=== PATIENT | female | born 1965 | race African-American/Black ===

== ENCOUNTER 2018-05-10 15:12 | Inpatient (IN) | payer OTHER ==
[2018-05-10 19:17] VITALS: BMI 49.2
--- NOTE | 2018-05-10 20:04 | HP ---
COWS - Scale Resting Pulse: 0= [place] 80 or Below Sweatin= Chills/Flushing Restless Observation: 1= Difficult to Sit Still Pupil Size: 0= Normal to Room Light Bone or Joint Aches: 2= Severe Diffuse Aches Runny Nose/ Eye Tearin= Runny Nose/Eyes GI Upset > 30mins: 1= Stomach Cramp Tremor Observation: 1= Tremor [place], Not Seen Yawning Observation: 2= >3x During Session Anxiety or Irritability: 2=Irritable/Anxious Goose Flesh Skin: 0=Smooth Skin COWS Score: 12 CIWA Score - CIWA Score Nausea/Vomitin Muscle Tremors: 2 Anxiety: 3 Agitation: 3 Paroxysmal Sweats: 2 Orientation: 0-Oriented Tacttile Disturbances: 2-Mild Itch/Numbness/Burn (b/t feet) Auditory Disturbances: 0-None Visual Disturbances: 0-None Headache: 0-None Present CIWA-Ar Total Score: 14 Admission ROS S - HPI Chief Complaint: opioid and benzo withdrawal symptoms Allergies/Adverse Reactions: Allergies Allergy/AdvReac Type Severity Reaction Status Date / Time Penicillins Allergy Rash Verified 05/10/18 20:04 History of Present Illness: 53 yo female with hx of nicotine, heroin (nasal), and xanax dependence is here seeking detox. Last detox two years ago in [facility]. PMHX : HTN, DM II, GERD, Asthma, Anemia, HDL, Depression, insomnia. Denies suicidal / homicidal ideation or suicide attempts. Denies hx of overdose, seizures, blackouts. Denies legal troubles. Longest periods of sobriety 16 years , relapsed six years ago. Exam Limitations: No Limitations - Ebola screening Have you traveled outside of the country in the last 21 days: No Have you had contact with anyone from an Ebola affected area: No Have you been sick,other than usual withdrawal symptoms: No - Review of Systems Constitutional: Chills, Changes in sleep, Unintentional Wgt. Loss (4 lb in past six weeks) EENT: reports: Nose Congestion Respiratory: reports: No Symptoms reported Cardiac: reports: No Symptoms Reported GI: reports: Poor Fluid Intake, Indigestion, Abdominal cramping : reports: No Symptoms Reported Musculoskeletal: reports: Back Pain, Joint Pain Integumentary: reports: No Symptoms Reported Neuro: reports: Numbness (b/l feet) Endocrine: reports: Increased Thirst Hematology: reports: See HPI, Anemia Psychiatric: reports: Orientated x3, Anxious Other Systems: Reviewed and Negative Patient History - Patient Medical History Hx Anemia: Yes Hx Asthma: Yes Hx Chronic Obstructive Pulmonary Disease (COPD): No Hx Cancer: No Hx Cardiac Disorders: No Hx Congestive Heart Failure: No Hx Hypertension: Yes Hx Hypercholesterolemia: Yes Hx Pacemaker: No HX Cerebrovascular Accident: Yes Hx Seizures: No Hx Dementia: No Hx Diabetes: Yes (on metformin ) Hx Gastrointestinal Disorders: Yes (GERD ) Hx Liver Disease: No Hx Genitourinary Disorders: No Hx Sexually Transmitted Disorders: No Hx Renal Disease (ESRD): No Hx Thyroid Disease: No Hx Human Immunodeficiency Virus (HIV): No (last tested november 2017) Hx Hepatitis C: No Hx Depression: Yes Hx Suicide Attempt: No Hx Bipolar Disorder: No - Patient Surgical History Past Surgical History: Yes Hx Neurologic Surgery: No Hx Cataract Extraction: No Hx Cardiac Surgery: No Hx Lung Surgery: No Hx Breast Surgery: No Hx Breast Biopsy: No Hx Abdominal Surgery: No Hx Appendectomy: No Hx Cholecystectomy: No Hx Genitourinary Surgery: No Hx Section: No Hx Orthopedic Surgery: No Other Surgical History: Tubal Ligation 16 years ago - PPD History Previous Implant?: No Documented Results: Negative w/o proof PPD to be Administered?: Yes - Reproductive History Patient is a Female of Child Bearing Age (11 -55 yrs old): Yes (post menopausal ) Patient : No - Smoking Cessation Smoking history: Current every day smoker Have you smoked in the past 12 months: Yes Aproximately how many cigarettes per day: 20 Hx Chewing Tobacco Use: No Initiated information on smoking cessation: Yes 'Breaking Loose' booklet given: 05/10/18 - Substance & Tx. History Hx Alcohol Use: No Hx Substance Use: Yes Substance Use Type: Heroin, Tranquilizers Hx Substance Use Treatment: Yes (Last detox two years ago in [facility]. ) - Substances Abused Heroin Route: Inhalation Frequency: Daily Amount used: 7 -10 bags Age of first use: 27 Date of Last Use: 05/10/18 Alprazolam (Xanax) Route: Inhalation Frequency: 1-2 times per week Amount used: 2 mg Age of first use: 47 Date of Last Use: 05/09/18 Family Disease History - Family Disease History Family Disease History: Diabetes: Mother (alive ) Admission Physical Exam [facility] - Vital Signs Vital Signs: Vital Signs - 24 hr 05/10/18 19:12 Temperature 97.7 F Pulse Rate 66 Respiratory 22 H Rate Blood Pressure 132/72 - Physical General Appearance: Yes: Mild Distress, Obese, Anxious HEENTM: Yes: EOMI, Hearing grossly Normal, Normal ENT Inspection, Normocephalic , Normal Voice, GUNNAR, Pharynx Normal, Tm's normal Respiratory: Yes: Chest Non-Tender, Lungs Clear, Normal Breath Sounds, No Respiratory Distress, No Accessory Muscle Use Neck: Yes: Within Normal Limits Breast: Yes: Breast Exam Deferred Cardiology: Yes: Regular Rhythm, Regular Rate Abdominal: Yes: Normal Bowel Sounds, Non Tender, Soft, Protuberent Genitourinary: Yes: Within Normal Limits Back: Yes: Normal Inspection Musculoskeletal: Yes: full range of Motion, Gait Steady, Pelvis Stable, Back pain Extremities: Yes: Normal Capillary Refill, Normal Range of Motion, Non-Tender Neurological: Yes: quality improvement specialist II-XII NML intact, Fully Oriented, Alert, Motor Strength 5/5, Normal Response, Depressed Affect Integumentary: Yes: Normal Color, Clammy Lymphatic: Yes: Within Normal Limits - Diagnostic (1) Hypertension Current Visit: Yes Status: Chronic Qualifiers: Hypertension type: essential hypertension Qualified Code(s): I10 - Essential (primary) hypertension (2) Diabetes mellitus type 2 in obese Current Visit: Yes Status: Chronic (3) Hyperlipidemia Current Visit: Yes Status: Chronic Qualifiers: Hyperlipidemia type: unspecified Qualified Code(s): E78.5 - Hyperlipidemia , unspecified (4) Anemia Current Visit: Yes Status: Chronic Qualifiers: Anemia type: unspecified type Qualified Code(s): D64.9 - Anemia, unspecified (5) Opioid dependence with withdrawal Current Visit: Yes Status: Acute (6) Sedative, hypnotic or anxiolytic dependence with withdrawal, uncomplicated Current Visit: Yes Status: Acute (7) Asthma Current Visit: Yes Status: Chronic Qualifiers: Asthma severity: mild Asthma persistence: intermittent Asthma complication type: uncomplicated Qualified Code(s): J45.20 - Mild intermittent asthma, uncomplicated (8) Nicotine dependence Current Visit: Yes Status: Acute Qualifiers: Nicotine product type: cigarettes Cleared for Admission [facility] - Detox or Rehab [facility] Level of Care: Medically Managed Detox Regimen/Protocol: Methadone/Valium BHS Breath Alcohol Content Breath Alcohol Content: 0 Urine Pregancy Test - Result Urine Test Results: Negative- NO Line Present Urine Drug Screen - Results Drug Screen Negative: No Urine Drug Screen Results: OPI-Opiates, BZO-Benzodiazepines, OXY-Oxycodone, FEN- Fentanyl
[2018-05-10] MEDS ORDERED: MAG HYDROX/AL HYDROX/SIMETH 30 ML UNIT-DOSE CUP PO PRN (20:29)
[2018-05-10] MEDS ORDERED: diazePAM 5 MG TABLET PO ONE (20:29)
[2018-05-10] MEDS ORDERED: MAGNESIUM CITRATE 300 ML BOTTLE PO PRN (20:29)
[2018-05-10] MEDS ORDERED: METHADONE HCL 10 MG TABLET (FOR DETOX USE ONLY) PO ONE ×2 (20:29→23:00)
[2018-05-10] MEDS ORDERED: hydrOXYzine PAMOATE 50 MG CAPSULE (FP) PO PRN (20:29)
[2018-05-10] MEDS ORDERED: ACETAMINOPHEN 325 MG TABLET (FP) PO PRN (20:29)
[2018-05-10] MEDS ORDERED: MAGNESIUM HYDROX 2400MG/30ML ORAL SUSPENSION 30 ML CUP PO PRN (20:29)
[2018-05-10] MEDS ORDERED: P-EPHED 60MG/TRIPROLIDI 2.5MG TABLET PO PRN (20:29)
[2018-05-10] MEDS ORDERED: guaiFENesin/D-METHORPHAN HB 10 ML UNIT-DOSE CUPS PO PRN (20:29)
[2018-05-10] MEDS ORDERED: NICOTINE POLACRILEX 2 MG GUM BUC PRN (20:29)
[2018-05-10] MEDS ORDERED: MENTHOL/PHENOL 1 EACH UD MM PRN (20:29)
[2018-05-10] MEDS ORDERED: LOPERAMIDE HCL 2 MG CAPSULE PO PRN (20:29)
[2018-05-10] MEDS: ATORVASTATIN CA 20 MG TABLET (FP) PO SCH (22:32)
[2018-05-10] MEDS: cloNIDine HCL 0.1 MG TABLET PO SCH (22:33)
[2018-05-10] MEDS: MELATONIN 5 MG TABLETS PO PRN (22:35)
[2018-05-10] MEDS: diazePAM 5 MG TABLET PO SCH (22:52)
[2018-05-10] MEDS: THIAMINE HCL 100 MG TABLET (FP) PO SCH (22:53)
[2018-05-11] MEDS: diazePAM 5 MG TABLET PO SCH ×3 (06:02→22:42)
[2018-05-11] MEDS: metFORMIN HCL 500 MG TABLET (FP) PO SCH ×2 (06:02→17:24)
--- NOTE | 2018-05-11 08:47 | CONSULT ---
[facility] Psychiatric Consult - Data Date of interview: 05/11/18 Admission source: [facility] Identifying data: This is a 53 years old female, single mother of two, living alone, unemployed, onn SSD, with no psychiatric hospitalization history, with history of nicotine, heroin (nasal), and xanax dependence is here seeking detox. reporting withdrawal symtoms. Last detox two years ago in [facility]. Substance Abuse History: - Smoking Cessation. Smoking history: Current every day smoker. Have you smoked in the past 12 months: Yes. Aproximately how many cigarettes per day: 20. Hx Chewing Tobacco Use: No. Initiated information on smoking cessation: Yes. 'Breaking Loose' booklet given: 05/10/18. - Substance & Tx. History. Hx Alcohol Use: No. Hx Substance Use: Yes. Substance Use Type : Heroin, Tranquilizers. Hx Substance Use Treatment: Yes (Last detox two years ago in [facility]. ). - Substances Abused. Heroin. Route: Inhalation. Frequency: Daily. Amount used: 7 -10 bags. Age of first use: 27. Date of Last Use: 05/10/18. Alprazolam (Xanax). Route: Inhalation. Frequency: 1-2 times per week. Amount used: 2 mg. Age of first use: 47. Date of Last Use: 05/09/18 Medical History: HTN, DM-2, Asthma, Low HDL history, hyperlipidemia, Anemia history Psychiatric History: Patient reports history of anxiety and depression, reports taking prior to admissin: Remeron 30mg po qhs. Risperdal 1mg po qhs. Prozoac 40mg poqd. Denies suicidal and homisidal history. Physical/Sexual Abuse/Trauma History: Denies Additional Comment: Remeron 30mg po qhs. Risperdal 1mg po qhs. Prozoac 40mg poqd Mental Status Exam - Mental Status Exam Alert and Oriented to: Person Cognitive Function: Fair Patient Appearance: Unkempt Mood: Apprehensive Affect: Mood Congruent Patient Behavior: Talkative, Cooperative Speech Pattern: Appropriate Voice Loudness: Mildly Soft/Quiet Thought Process: Goal Oriented Thought Disorder: Being Controlled Hallucinations: Denies Suicidal Ideation: Denies Homicidal Ideation: Denies Insight/Judgement: Fair Sleep: Difficulty falling asleep Appetite: Weight gain Muscle strength/Tone: Mild Hypotonicity Gait/Station: Shuffling Additional Comments: Remeron 30mg po qhs. Risperdal 1mg po qhs. Prozoac 40mg poqd Psychiatric Findings - Problem List ([place] 1, 2,3) (1) Nicotine dependence Current Visit: Yes Status: Acute Qualifiers: Nicotine product type: cigarettes (2) Opioid dependence with withdrawal Current Visit: Yes Status: Acute (3) Sedative, hypnotic or anxiolytic dependence with withdrawal, uncomplicated Current Visit: Yes Status: Acute (4) Anemia Current Visit: Yes Status: Chronic Qualifiers: Anemia type: unspecified type Qualified Code(s): D64.9 - Anemia, unspecified (5) Asthma Current Visit: Yes Status: Chronic Qualifiers: Asthma severity: mild Asthma persistence: intermittent Asthma complication type: uncomplicated Qualified Code(s): J45.20 - Mild intermittent asthma, uncomplicated (6) Diabetes mellitus type 2 in obese Current Visit: Yes Status: Chronic (7) Hyperlipidemia Current Visit: Yes Status: Chronic Qualifiers: Hyperlipidemia type: unspecified Qualified Code(s): E78.5 - Hyperlipidemia , unspecified (8) Hypertension Current Visit: Yes Status: Chronic Qualifiers: Hypertension type: essential hypertension Qualified Code(s): I10 - Essential (primary) hypertension - Initial Treatment Plan Initial Treatment Plan: Remeron 30mg po qhs. Risperdal 1mg po qhs. Prozoac 40mg poqd
[2018-05-11] MEDS ORDERED: METHADONE HCL 10 MG TABLET (FOR DETOX USE ONLY) PO SCH (10:00)
[2018-05-11 10:07] LABS: HEMATOCRIT 37.7 % (32.4-45.2); HEMOGLOBIN 12.4 GM/dL (10.7-15.3); MCH 30.4 pg (25.7-33.7); MEAN CELL VOLUME 92.1 fl (80-96); MEAN PLT VOLUME 9.7 fl (7.5-11.1); PLATELET COUNT 185 K/MM3 (134-434); RBC 4.09 M/mm3 (3.60-5.2); RDW 13.5 % (11.6-15.6); WHITE BLOOD COUNT 5.3 K/mm3 (4.0-10.0)
[2018-05-11 10:47] LABS: ALK PHOS 105 U/L (45-117); ANION GAP 7 MMOL/L (8-16); BILIRUBIN,TOTAL 0.9 mg/dL (0.2-1); BLOOD UREA NITROGEN 6 mg/dL (7-18); CALCIUM 8.8 mg/dL (8.5-10.1); CHLORIDE 104 mmol/L (98-107); CO2 29 mmol/L (21-32); CREATININE 0.6 mg/dL (0.55-1.3); GLUCOSE,RANDOM 115 mg/dL (74-106); POTASSIUM 3.8 mmol/L (3.5-5.1); SGOT/AST 17 U/L (15-37); SGPT/ALT 18 U/L (13-61); SODIUM 139 mmol/L (136-145)
[2018-05-11] MEDS: amLODIPine BESYLATE 10 MG TABLET (FP) PO SCH (10:51)
[2018-05-11] MEDS: PRENATAL VITAMINS W/ FOLIC ACID TABLET (FP) PO SCH (10:52)
[2018-05-11] MEDS: cloNIDine HCL 0.1 MG TABLET PO SCH ×2 (10:52→22:42)
[2018-05-11] MEDS: FLUoxetine HCL 20 MG CAPSULE (FP) PO SCH (10:52)
[2018-05-11] MEDS: PANTOPRAZOLE 40 MG TABLET (FP) PO SCH (10:52)
[2018-05-11] MEDS: NICOTINE 21 MG/24 HOURS TOPICAL PATCH TD SCH (10:53)
[2018-05-11] MEDS: diazePAM 5 MG TABLET PO PRN ×2 (10:55→17:25)
[2018-05-11] MEDS ORDERED: ALBUTEROL SO4 8 GM HFA INHALER IH PRN (11:07)
--- NOTE | 2018-05-11 11:21 | PN ---
[facility] CIWA - CIWA Score Nausea/Vomitin-No Nausea/No Vomiting Muscle Tremors: 4-Moderate,w/Arms Extend Anxiety: 3 Agitation: 3 Paroxysmal Sweats: 3 Orientation: 0-Oriented Tacttile Disturbances: 0-None Auditory Disturbances: 0-None Visual Disturbances: 0-None Headache: 0-None Present CIWA-Ar Total Score: 13 BHS COWS - Scale Resting Pulse: 1= [place] 81-100 Sweatin= Chills/Flushing Restless Observation: 1= Difficult to Sit Still Pupil Size: 0= Normal to Room Light Bone or Joint Aches: 2= Severe Diffuse Aches Runny Nose/ Eye Tearin= Nasal Congestion GI Upset > 30mins: 0= None Tremor Observation of Outstretched Hands: 2= Slight Tremor Visible Yawning Observation: 2= >3x During Session Anxiety or Irritability: 2=Irritable/Anxious Goose Flesh Skin: 3=Piloerection COWS Score: 15 BHS Progress Note (SOAP) Subjective: body aches sweats interrupted sleep agitation I need my asthma pump shakes Objective: 05/11/18 11:21 Vital Signs Temperature 98.1 F 05/11/18 10:30 Pulse Rate 81 05/11/18 10:30 Respiratory Rate 19 05/11/18 10:30 Blood Pressure 121/68 05/11/18 10:30 O2 Sat by Pulse Oximetry (%) Laboratory Tests 05/10/18 05/11/18 05/11/18 20:36 06:01 07:30 WBC 5.3 RBC 4.09 Hgb 12.4 Hct 37.7 MCV 92.1 MCH 30.4 MCHC 33.0 RDW 13.5 Plt Count 185 MPV 9.7 Sodium Potassium Chloride Carbon Dioxide Anion Gap BUN Creatinine Creat Clearance w eGFR POC Glucometer 118 144 Random Glucose Calcium Total Bilirubin AST ALT Alkaline Phosphatase Total Protein Albumin RPR Titer 05/11/18 05/11/18 07:30 07:30 WBC RBC Hgb Hct MCV MCH MCHC RDW Plt Count MPV Sodium 139 Potassium 3.8 Chloride 104 Carbon Dioxide 29 Anion Gap 7 L BUN 6 L Creatinine 0.6 Creat Clearance w eGFR > 60 POC Glucometer Random Glucose 115 H Calcium 8.8 Total Bilirubin 0.9 AST 17 ALT 18 Alkaline Phosphatase 105 Total Protein 6.0 L Albumin 3.0 L RPR Titer Nonreactive aaox3 lying in bed no acute distress Assessment: 05/11/18 11:21 withdrawals sx Plan: continue detox increase fluids ventolin pump ordered
--- NOTE | 2018-05-11 14:48 | EKG ---
Test Reason : Blood Pressure : / mmHG Vent. Rate : 068 BPM Atrial Rate : 068 BPM P-R Int : 142 ms QRS Dur : 078 ms QT Int : 420 ms P-R-T Axes : 071 010 028 degrees QTc Int : 446 ms NORMAL SINUS RHYTHM NORMAL ECG NO PREVIOUS ECGS AVAILABLE Confirmed by DINORAH ROBBINS, RUFINO ([id number]) on 05/11/2018 2:48:24 PM Referred By: Confirmed By:RUFINO COPELAND MD
[2018-05-11] MEDS: MIRTAZAPINE 30 MG TABLET (FP) PO SCH (22:42)
[2018-05-11] MEDS: risperiDONE 1 MG TABLET (FP) PO SCH (22:42)
[2018-05-11] MEDS: ATORVASTATIN CA 20 MG TABLET (FP) PO SCH (22:42)
[2018-05-11] MEDS: THIAMINE HCL 100 MG TABLET (FP) PO SCH (22:43)
[2018-05-12] MEDS: diazePAM 5 MG TABLET PO PRN ×3 (03:22→17:13)
[2018-05-12] MEDS: IBUPROFEN 400 MG TABLET (FP) PO PRN ×3 (03:23→22:23)
[2018-05-12] MEDS: metFORMIN HCL 500 MG TABLET (FP) PO SCH ×2 (07:19→17:12)
[2018-05-12] MEDS: PRENATAL VITAMINS W/ FOLIC ACID TABLET (FP) PO SCH (10:24)
[2018-05-12] MEDS: cloNIDine HCL 0.1 MG TABLET PO SCH ×2 (10:24→22:22)
[2018-05-12] MEDS: FLUoxetine HCL 20 MG CAPSULE (FP) PO SCH (10:24)
[2018-05-12] MEDS: amLODIPine BESYLATE 10 MG TABLET (FP) PO SCH (10:24)
[2018-05-12] MEDS: METHADONE HCL 5 MG TABLET (FOR DETOX USE ONLY) PO SCH (10:25)
[2018-05-12] MEDS: NICOTINE 21 MG/24 HOURS TOPICAL PATCH TD SCH (10:25)
[2018-05-12] MEDS: diazePAM 5 MG TABLET PO SCH ×2 (10:25→22:21)
[2018-05-12] MEDS: PANTOPRAZOLE 40 MG TABLET (FP) PO SCH (10:25)
--- NOTE | 2018-05-12 11:44 | PN ---
[facility] CIWA - CIWA Score Nausea/Vomitin-No Nausea/No Vomiting Muscle Tremors: 3 Anxiety: 3 Agitation: 3 Paroxysmal Sweats: 3 Orientation: 0-Oriented Tacttile Disturbances: 0-None Auditory Disturbances: 0-None Visual Disturbances: 0-None Headache: 0-None Present CIWA-Ar Total Score: 12 S COWS - Scale Resting Pulse: 0= [place] 80 or Below Sweatin= Chills/Flushing Restless Observation: 0= Sits Still Pupil Size: 0= Normal to Room Light Bone or Joint Aches: 1= Mild Discomfort Runny Nose/ Eye Tearin= Runny Nose/Eyes GI Upset > 30mins: 1= Stomach Cramp Tremor Observation of Outstretched Hands: 2= Slight Tremor Visible Yawning Observation: 2= >3x During Session Anxiety or Irritability: 2=Irritable/Anxious Goose Flesh Skin: 0=Smooth Skin COWS Score: 11 S Progress Note (SOAP) Subjective: sweats irritable agitation anxiety body aches Objective: 05/12/18 11:45 Vital Signs Temperature 98.2 F 05/12/18 11:03 Pulse Rate 72 05/12/18 11:03 Respiratory Rate 17 05/12/18 11:03 Blood Pressure 116/59 L 05/12/18 11:03 O2 Sat by Pulse Oximetry (%) Laboratory Tests 05/10/18 05/11/18 05/11/18 20:36 06:01 07:30 WBC 5.3 RBC 4.09 Hgb 12.4 Hct 37.7 MCV 92.1 MCH 30.4 MCHC 33.0 RDW 13.5 Plt Count 185 MPV 9.7 Sodium Potassium Chloride Carbon Dioxide Anion Gap BUN Creatinine Creat Clearance w eGFR POC Glucometer 118 144 Random Glucose Calcium Total Bilirubin AST ALT Alkaline Phosphatase Total Protein Albumin RPR Titer 05/11/18 05/11/18 05/11/18 07:30 07:30 16:37 WBC RBC Hgb Hct MCV MCH MCHC RDW Plt Count MPV Sodium 139 Potassium 3.8 Chloride 104 Carbon Dioxide 29 Anion Gap 7 L BUN 6 L Creatinine 0.6 Creat Clearance w eGFR > 60 POC Glucometer 189 Random Glucose 115 H Calcium 8.8 Total Bilirubin 0.9 AST 17 ALT 18 Alkaline Phosphatase 105 Total Protein 6.0 L Albumin 3.0 L RPR Titer Nonreactive 05/12/18 07:03 WBC RBC Hgb Hct MCV MCH MCHC RDW Plt Count MPV Sodium Potassium Chloride Carbon Dioxide Anion Gap BUN Creatinine Creat Clearance w eGFR POC Glucometer 127 Random Glucose Calcium Total Bilirubin AST ALT Alkaline Phosphatase Total Protein Albumin RPR Titer aaox3 lying in bed no acute distress Assessment: 05/12/18 11:47 withdrawal sx Plan: continue detox increase fluids
[2018-05-12 18:52] LABS: URINE APPEARANCE SLCLOUDY; URINE BILIRUBIN NEGATIVE (<2.0 mg/dL); URINE COLOR AMBER; URINE GLUCOSE (UA) NEGATIVE (NEGATIVE); URINE KETONE NEGATIVE (NEGATIVE); URINE LEUK ESTERASE TRACE (NEGATIVE); URINE NITRITE NEGATIVE (NEGATIVE); URINE PROTEIN NEGATIVE (NEGATIVE)
[2018-05-12 19:05] LABS: EPI CELLS FEW /HPF (FEW); URINE BACTERIA RARE /hpf (NONE SEEN); URINE MUCUS FEW
[2018-05-12] MEDS: THIAMINE HCL 100 MG TABLET (FP) PO SCH (22:21)
[2018-05-12] MEDS: MIRTAZAPINE 30 MG TABLET (FP) PO SCH (22:22)
[2018-05-12] MEDS: risperiDONE 1 MG TABLET (FP) PO SCH (22:22)
[2018-05-12] MEDS: ATORVASTATIN CA 20 MG TABLET (FP) PO SCH (22:22)
[2018-05-12] MEDS: MELATONIN 5 MG TABLETS PO PRN (22:24)
[2018-05-13] MEDS: metFORMIN HCL 500 MG TABLET (FP) PO SCH ×2 (07:58→16:39)
[2018-05-13] MEDS: PRENATAL VITAMINS W/ FOLIC ACID TABLET (FP) PO SCH (10:53)
[2018-05-13] MEDS: amLODIPine BESYLATE 10 MG TABLET (FP) PO SCH (10:53)
[2018-05-13] MEDS: FLUoxetine HCL 20 MG CAPSULE (FP) PO SCH (10:53)
[2018-05-13] MEDS: diazePAM 5 MG TABLET PO SCH ×2 (10:53→22:25)
[2018-05-13] MEDS: PANTOPRAZOLE 40 MG TABLET (FP) PO SCH (10:53)
[2018-05-13] MEDS: cloNIDine HCL 0.1 MG TABLET PO SCH ×2 (10:53→22:26)
[2018-05-13] MEDS: METHADONE HCL 5 MG TABLET (FOR DETOX USE ONLY) PO SCH (10:54)
[2018-05-13] MEDS: IBUPROFEN 400 MG TABLET (FP) PO PRN ×2 (10:57→17:41)
[2018-05-13] MEDS: NICOTINE 21 MG/24 HOURS TOPICAL PATCH TD SCH (11:00)
[2018-05-13] MEDS: diazePAM 5 MG TABLET PO PRN ×2 (12:52→17:41)
--- NOTE | 2018-05-13 13:59 | PN ---
[facility]HS Progress Note (SOAP) Subjective: pt feeling better little sweats chronic body aches i want to leave tomorrow if possible Objective: 05/13/18 13:58 Vital Signs Temperature 97.7 F 05/13/18 10:00 Pulse Rate 73 05/13/18 10:00 Respiratory Rate 20 05/13/18 10:00 Blood Pressure 153/75 05/13/18 10:00 O2 Sat by Pulse Oximetry (%) aaox3 ambulating no acute distress Assessment: 05/13/18 13:59 mild withdrawal sx Plan: continue detox increase fluids pt may leave tomorrow after medication. If pt continue to insist.
[2018-05-13] MEDS: MIRTAZAPINE 30 MG TABLET (FP) PO SCH (22:25)
[2018-05-13] MEDS: risperiDONE 1 MG TABLET (FP) PO SCH (22:25)
[2018-05-13] MEDS: MELATONIN 5 MG TABLETS PO PRN (22:26)
[2018-05-13] MEDS: ATORVASTATIN CA 20 MG TABLET (FP) PO SCH (22:26)
[2018-05-13] MEDS: THIAMINE HCL 100 MG TABLET (FP) PO SCH (22:26)
[2018-05-14] MEDS: metFORMIN HCL 500 MG TABLET (FP) PO SCH (06:09)
[2018-05-14] MEDS: PANTOPRAZOLE 40 MG TABLET (FP) PO SCH (09:51)
[2018-05-14] MEDS: cloNIDine HCL 0.1 MG TABLET PO SCH (09:51)
[2018-05-14] MEDS: FLUoxetine HCL 20 MG CAPSULE (FP) PO SCH (09:51)
[2018-05-14] MEDS: amLODIPine BESYLATE 10 MG TABLET (FP) PO SCH (09:51)
[2018-05-14] MEDS: PRENATAL VITAMINS W/ FOLIC ACID TABLET (FP) PO SCH (09:52)
--- NOTE | 2018-05-14 09:52 | DS ---
[facility] Detox Discharge Summary Admission Date: 05/10/18 Discharge Date: 05/14/18 - History Present History: Opioid Dependence, Sedative Dependence Additional Comments: Patient medically stable. Patient to follow up with Primary care provider in one week. Reports no refills needed on medications, reports has medications at home. Patient to follow up with out patient referral. If worsening symptoms are present to seek medical attention. - Physical Exam Results Vital Signs: Vital Signs Temperature 97.7 F 05/14/18 08:08 Pulse Rate 66 05/14/18 08:08 Respiratory Rate 18 05/14/18 08:08 Blood Pressure 115/64 05/14/18 08:08 O2 Sat by Pulse Oximetry (%) - Treatment Hospital Course: Detox Protocol Followed, Detoxed Safely, Responded well, Discharged Condition Good, Rehab Referral Accepted Patient has Accepted a Re[facility] Referral [facility] - Medication Discharge Medications: Ambulatory Orders Amlodipine Besylate 10 mg PO DAILY 05/10/18 Atorvastatin Ca [Lipitor] 20 mg PO HS 05/10/18 Clonidine HCl 0.1 mg PO BID 05/10/18 Metformin HCl [Glucophage] 1,000 mg PO BID 05/10/18 Pantoprazole Sodium [Protonix -] 40 mg PO DAILY 05/10/18 Fluoxetine HCl [Prozac] 40 mg PO DAILY #30 capsule 05/11/18 Mirtazapine [Remeron -] 30 mg PO HS #30 tablet 05/11/18 Risperidone 1 mg PO HS #30 tablet 05/11/18 - Diagnosis (1) Hypertension Status: Chronic Qualifiers: Hypertension type: essential hypertension Qualified Code(s): I10 - Essential (primary) hypertension (2) Diabetes mellitus type 2 in obese Status: Chronic (3) Hyperlipidemia Status: Chronic Qualifiers: Hyperlipidemia type: unspecified Qualified Code(s): E78.5 - Hyperlipidemia , unspecified (4) Anemia Status: Chronic Qualifiers: Anemia type: unspecified type Qualified Code(s): D64.9 - Anemia, unspecified (5) Opioid dependence with withdrawal Status: Chronic (6) Sedative, hypnotic or anxiolytic dependence with withdrawal, uncomplicated Status: Chronic (7) Asthma Status: Chronic Qualifiers: Asthma severity: mild Asthma persistence: intermittent Asthma complication type: uncomplicated Qualified Code(s): J45.20 - Mild intermittent asthma, uncomplicated (8) Nicotine dependence Status: Chronic Qualifiers: Nicotine product type: cigarettes Substance use status: uncomplicated Qualified Code(s): F17.210 - Nicotine dependence, cigarettes, uncomplicated - AMA Did Patient Leave Against Medical Advice: No
[2018-05-14] MEDS ORDERED: diazePAM 5 MG TABLET PO SCH (10:00)
[2018-05-14] MEDS ORDERED: METHADONE HCL 10 MG TABLET (FOR DETOX USE ONLY) PO SCH (10:00)
[2018-05-14 11:02] VITALS: BP 133/96; PULSE 78; TEMP 98.1
[2018-05-14] MEDS: NICOTINE 21 MG/24 HOURS TOPICAL PATCH TD SCH (12:07)
[2018-05-15] MEDS ORDERED: METHADONE HCL 5 MG TABLET (FOR DETOX USE ONLY) PO SCH (06:00)
== END 2018-05-14 09:55 | disposition home or self-care (01) | DRG 897 ==
LOC: YASAS 15:12 → Y6N 20:11
PROC: HZ2ZZZZ Detoxification Services for Substance Abuse Treatment (ICD-10-PCS; principal; 2018-05-10)
DX: F11.23 Opioid dependence with withdrawal (principal); F13.230 Sedative, hypnotic or anxiolytic dependence with withdrawal, uncomplicated; F17.210 Nicotine dependence, cigarettes, uncomplicated; E11.9 Type 2 diabetes mellitus without complications; Z79.4 Long term (current) use of insulin; E78.5 Hyperlipidemia, unspecified; I10 Essential (primary) hypertension; K21.9 Gastro-esophageal reflux disease without esophagitis; J45.20 Mild intermittent asthma, uncomplicated; D64.9 Anemia, unspecified; Z88.0 Allergy status to penicillin
CPT/HCPCS: 36415; 80053; 81003; 81015; 82962; 85027; 86593; 93005; 93010; J0735; J2794

== ENCOUNTER 2018-07-08 13:30 | Inpatient (IN) | payer OTHER ==
[2018-07-08 16:18] VITALS: BMI 48.5
--- NOTE | 2018-07-08 17:28 | HP ---
COWS - Scale Resting Pulse: 0= NE 80 or Below Sweatin= Chills/Flushing Restless Observation: 0= Sits Still Pupil Size: 0= Normal to Room Light Bone or Joint Aches: 2= Severe Diffuse Aches Runny Nose/ Eye Tearin= Constantly Teary/Runny GI Upset > 30mins: 1= Stomach Cramp Tremor Observation: 0= None Yawning Observation: 0= None Anxiety or Irritability: 2=Irritable/Anxious Goose Flesh Skin: 0=Smooth Skin COWS Score: 10 CIWA Score - Admission Criteria [facility] Guidelines: Admission for Medically Managed Detox: Requires at least one of the followin. CIWA greater than 12 2. Seizures within the past 24 hours 3. Delirium tremens within the past 24 hours 4. Hallucinations within the past 24 hours 5. Acute intervention needed for co occurring medical disorder 6. Acute intervention needed for co occurring psychiatric disorder 7. Severe withdrawal that cannot be handled at a lower level of care (continued vomiting, continued diarrhea, abnormal vital signs) requiring intravenous medication and/or fluids 8. Admission ROS [facility] - HPI Allergies/Adverse Reactions: Allergies Allergy/AdvReac Type Severity Reaction Status Date / Time Penicillins Allergy Rash Verified 07/08/18 17:05 History of Present Illness: patient here requesting detox from heroin use , reports 9-10 bags heroin daily via inhalation , intermittently since age 27 , longest sobriety 16 years , relapsed at age 46 after rx Oxycontin for back pain , her brother took her medications and had withdrawal symptoms started using heroin , detox most recently 2 months ago , denies OD . xanax use - " as often as I can get it " , approximately1 mg /day , latest use 2 days ago , denies w/d seizures . utox + mop, bzo , fent denies fentanyl use upt neg erika 0.000 denies etoh use tobacco : 1 ppd , requesting nrt w/ patch pmhx : htn , dm , hld, depression, anxiety PSHx : btl 2000 Shx : lives alone Exam Limitations: No Limitations - Ebola screening Have you traveled outside of the country in the last 21 days: No Have you had contact with anyone from an Ebola affected area: No Have you been sick,other than usual withdrawal symptoms: No Do you have a fever: No - Review of Systems Constitutional: See HPI EENT: reports: Tearing Respiratory: reports: No Symptoms reported Cardiac: reports: No Symptoms Reported GI: reports: See HPI : reports: No Symptoms Reported Musculoskeletal: reports: Back Pain, Muscle Pain Integumentary: reports: No Symptoms Reported Neuro: reports: No Symptoms reported Endocrine: reports: See HPI Psychiatric: reports: Orientated x3, Anxious Patient History - Patient Medical History Hx Anemia: Yes Hx Asthma: No Hx Chronic Obstructive Pulmonary Disease (COPD): No Hx Cancer: No Hx Cardiac Disorders: No Hx Congestive Heart Failure: No Hx Hypertension: Yes Hx Hypercholesterolemia: Yes Hx Pacemaker: No HX Cerebrovascular Accident: Yes Hx Seizures: No Hx Dementia: No Hx Diabetes: No Hx Gastrointestinal Disorders: Yes (GERD ) Hx Liver Disease: No Hx Genitourinary Disorders: No Hx Sexually Transmitted Disorders: No Hx Renal Disease (ESRD): No Hx Thyroid Disease: No Hx Human Immunodeficiency Virus (HIV): No (last tested november 2017) Hx Hepatitis C: No Hx Depression: Yes Hx Suicide Attempt: No Hx Bipolar Disorder: No Hx Schizophrenia: No - Patient Surgical History Past Surgical History: Yes Hx Neurologic Surgery: No Hx Cataract Extraction: No Hx Cardiac Surgery: No Hx Lung Surgery: No Hx Breast Surgery: No Hx Breast Biopsy: No Hx Abdominal Surgery: No Hx Appendectomy: No Hx Cholecystectomy: No Hx Genitourinary Surgery: No Hx Section: No Hx Orthopedic Surgery: No Other Surgical History: Tubal Ligation 16 years ago - PPD History Date: 05/12/18 - Smoking Cessation Smoking history: Current every day smoker Have you smoked in the past 12 months: Yes Aproximately how many cigarettes per day: 20 Hx Chewing Tobacco Use: No Initiated information on smoking cessation: No - Substances Abused Heroin Route: SNIFF Frequency: Daily Amount used: 10 BAGS Age of first use: 27 Date of Last Use: 07/08/18 Alprazolam (Xanax) Route: Oral Frequency: Daily Amount used: 1MG Age of first use: 45 Date of Last Use: 07/08/18 Family Disease History - Family Disease History Family Disease History: Diabetes: Mother (alive ) Admission Physical Exam BHS - Vital Signs Vital Signs: Vital Signs - 24 hr 07/08/18 16:15 Temperature 96 F L Pulse Rate 77 Respiratory 20 Rate Blood Pressure 162/77 - Physical General Appearance: Yes: Mild Distress HEENTM: Yes: Normocephalic, Normal Voice, Pharynx Normal, Other (poor dentition , mising teeth) Respiratory: Yes: Chest Non-Tender, Lungs Clear, Normal Breath Sounds Neck: Yes: No masses,lesions,Nodules, Trachea in good position Cardiology: Yes: Regular Rhythm, Regular Rate, S1, S2 Abdominal: Yes: Normal Bowel Sounds, Non Tender, Protuberent Back: Yes: Normal Inspection Musculoskeletal: Yes: full range of Motion, Gait Steady Extremities: Yes: Normal Range of Motion, Pedal Edema Neurological: Yes: Motor Strength 5/5 Integumentary: Yes: Normal Color, Dry, Warm - Diagnostic (1) Diabetes mellitus type 2 in obese Current Visit: No Status: Chronic (2) Hyperlipidemia Current Visit: No Status: Chronic Qualifiers: Hyperlipidemia type: pure hypercholesterolemia Qualified Code(s): E78.00 - Pure hypercholesterolemia, unspecified; E78.0 - Pure hypercholesterolemia (3) Hypertension Current Visit: No Status: Chronic Qualifiers: Hypertension type: essential hypertension Qualified Code(s): I10 - Essential (primary) hypertension (4) Nicotine dependence Current Visit: No Status: Chronic Qualifiers: Nicotine product type: cigarettes Substance use status: uncomplicated Qualified Code(s): F17.210 - Nicotine dependence, cigarettes, uncomplicated (5) Opioid dependence with withdrawal Current Visit: No Status: Acute BHS Breath Alcohol Content Breath Alcohol Content: 0 Urine Pregancy Test - Result Urine Test Results: Negative- NO Line Present Urine Drug Screen - Results Drug Screen Negative: No Urine Drug Screen Results: OPI-Opiates, BZO-Benzodiazepines, FEN-Fentanyl
[2018-07-08] MEDS ORDERED: MAGNESIUM HYDROX 2400MG/30ML ORAL SUSPENSION 30 ML CUP PO PRN (17:32)
[2018-07-08] MEDS ORDERED: P-EPHED 60MG/TRIPROLIDI 2.5MG TABLET PO PRN (17:32)
[2018-07-08] MEDS ORDERED: MENTHOL/PHENOL 1 EACH UD MM PRN (17:32)
[2018-07-08] MEDS ORDERED: guaiFENesin/D-METHORPHAN HB 10 ML UNIT-DOSE CUPS PO PRN (17:32)
[2018-07-08] MEDS ORDERED: MAGNESIUM CITRATE 300 ML BOTTLE PO PRN (17:32)
[2018-07-08] MEDS ORDERED: ACETAMINOPHEN 325 MG TABLET (FP) PO PRN (17:32)
[2018-07-08] MEDS ORDERED: METHADONE HCL 10 MG TABLET (FOR DETOX USE ONLY) PO ONE ×2 (18:30→23:00)
[2018-07-08] MEDS ORDERED: MELATONIN 5 MG TABLETS PO PRN (22:00)
[2018-07-08] MEDS: ATORVASTATIN CA 20 MG TABLET (FP) PO SCH (22:27)
[2018-07-08] MEDS: THIAMINE HCL 100 MG TABLET (FP) PO SCH (22:27)
[2018-07-08] MEDS: cloNIDine HCL 0.1 MG TABLET PO PRN (22:27)
[2018-07-08] MEDS: INSULIN SLIDING SCALE (NOVOLOG) 1 VIAL SQ SCH (22:36)
[2018-07-09] MEDS: cloNIDine HCL 0.1 MG TABLET PO PRN ×2 (06:09→23:51)
[2018-07-09] MEDS: metFORMIN HCL 500 MG TABLET (FP) PO SCH ×2 (06:26→16:30)
[2018-07-09] MEDS: INSULIN SLIDING SCALE (NOVOLOG) 1 VIAL SQ SCH ×4 (06:26→21:30)
[2018-07-09] MEDS: IBUPROFEN 400 MG TABLET (FP) PO PRN ×2 (07:25→19:02)
[2018-07-09] MEDS ORDERED: CYCLOBENZAPRINE HCL 5 MG TABLET PO ONE (07:38)
[2018-07-09] MEDS ORDERED: METHADONE HCL 10 MG TABLET (FOR DETOX USE ONLY) PO ONE (10:00)
[2018-07-09] MEDS: amLODIPine BESYLATE 10 MG TABLET (FP) PO SCH (10:22)
[2018-07-09] MEDS: PANTOPRAZOLE 40 MG TABLET (FP) PO SCH (10:22)
[2018-07-09] MEDS: PRENATAL VITAMINS W/ FOLIC ACID TABLET (FP) PO SCH (10:23)
[2018-07-09] MEDS: NICOTINE 7 MG/24 HOURS TOPICAL PATCH TD SCH (10:23)
--- NOTE | 2018-07-09 10:45 | CONSULT ---
[facility] Psychiatric Consult - Data Date of interview: 07/09/18 Admission source: [facility] Identifying data: Readmission to [facility] for this 53 y/o AA female seeking detoxification treatment on for heroin and xanax dependence. Patient is single, a mother of two, domiciled, unemployed and supported on [facility] benefits. Substance Abuse History: Confirmed by the patient in this session. Details in current [facility] report : Smoking history: Current every day smoker. Have you smoked in the past 12 months: Yes. Aproximately how many cigarettes per day: 20. Hx Chewing Tobacco Use: No. Initiated information on smoking cessation: No. - Substances Abused. Heroin. Route: SNIFF. Frequency: Daily. Amount used: 10 BAGS. Age of first use: 27. Date of Last Use: 07/08/18. Alprazolam (Xanax). Route: Oral. Frequency: Daily. Amount used: 1MG. Age of first use: 45. Date of Last Use: 07/08/18 Medical History: Obesity, hypertension, GERD, dyslipidemia and anemia. Psychiatric History: No reported history of psychiatric hospitalizations. Patient declares that she has been diagnosed with MDD and Anxiety Disorder. Currently treated with fluoxetine 40 mg/day + seroquel 50 mg/hs + remeron 30 mg/ hs + risperdal 1 mg bid + buspar 15 mg tid (confirmed by survey of pharmacy claims of 06/17/18 at the [facility]) at the [facility] mental health clinic. Ms Mcknight denies history of suicide attempts. Physical/Sexual Abuse/Trauma History: Not discussed. Patient declines. Additional Comment: Urine Drug Screen Results: OPI-Opiates, BZO-Benzodiazepines , FEN-Fentanyl. Noted. Mental Status Exam - Mental Status Exam Alert and Oriented to: Time, Place, Person Cognitive Function: Good Patient Appearance: Well Groomed (overweight) Mood: Withdrawn, Anxious Affect: Mood Congruent, Constricted Patient Behavior: Appropriate, Cooperative Speech Pattern: Clear, Appropriate Voice Loudness: Normal Thought Process: Intact, Goal Oriented Thought Disorder: Not Present Hallucinations: Denies Suicidal Ideation: Denies Homicidal Ideation: Denies Insight/Judgement: Poor Sleep: Poorly, Difficulty falling asleep Appetite: Good Muscle strength/Tone: Normal Gait/Station: Normal Psychiatric Findings - Problem List ([place] 1, 2,3) (1) Opioid dependence with withdrawal Current Visit: Yes Status: Acute (2) Sedative, hypnotic or anxiolytic dependence with withdrawal, uncomplicated Current Visit: Yes Status: Acute (3) Nicotine dependence Current Visit: Yes Status: Chronic Qualifiers: Nicotine product type: cigarettes Substance use status: uncomplicated Qualified Code(s): F17.210 - Nicotine dependence, cigarettes, uncomplicated (4) MDD (major depressive disorder) Current Visit: Yes Status: Chronic (5) Substance induced mood disorder Current Visit: Yes Status: Chronic (6) Insomnia Current Visit: Yes Status: Acute - Initial Treatment Plan Initial Treatment Plan: Psychoeducation. Sleep hygiene. Detoxification in progress. medications resumed as follows : seroquel 50 mg po hs + prozac 40 mg po daily + buspar 10 mg po tid. Side effects/benefits of each drug are discussed with the patient. Consent (verbal) given to MD. Support. NA meetings. Motivational sessions for the promotion of sobriety. Relapse prevention discussed. Observation.
[2018-07-09 11:14] LABS: HEMATOCRIT 40.5 % (32.4-45.2); HEMOGLOBIN 13.3 GM/dL (10.7-15.3); MCH 30.5 pg (25.7-33.7); MCHC 32.9 g/dl (32.0-36.0); MEAN CELL VOLUME 92.9 fl (80-96); MEAN PLT VOLUME 10.4 fl (7.5-11.1); PLATELET COUNT 170 K/MM3 (134-434); RBC 4.36 M/mm3 (3.60-5.2); WHITE BLOOD COUNT 5.9 K/mm3 (4.0-10.0)
--- NOTE | 2018-07-09 11:31 | PN ---
[facility] CIWA - CIWA Score Nausea/Vomitin-No Nausea/No Vomiting Muscle Tremors: 4-Moderate,w/Arms Extend Anxiety: 5 Agitation: 4-Moderately Restless Paroxysmal Sweats: 1-Minimal Palms Moist Orientation: 0-Oriented Tacttile Disturbances: 0-None Auditory Disturbances: 0-None Visual Disturbances: 0-None Headache: 0-None Present CIWA-Ar Total Score: 14 S COWS - Scale Resting Pulse: 0= HI 80 or Below Sweatin= Chills/Flushing Restless Observation: 3= Extraneous Movement Pupil Size: 0= Normal to Room Light Bone or Joint Aches: 1= Mild Discomfort Runny Nose/ Eye Tearin= None GI Upset > 30mins: 0= None Tremor Observation of Outstretched Hands: 2= Slight Tremor Visible Yawning Observation: 1= 1-2x During Session Anxiety or Irritability: 2=Irritable/Anxious Goose Flesh Skin: 0=Smooth Skin COWS Score: 10 S Progress Note (SOAP) Subjective: PT C/O ANXIETY, TREMORS, IRRITABILITY,INTERMITTENT SLEEP. Objective: Laboratory Tests 07/08/18 07/09/18 07/09/18 21:47 06:14 07:50 WBC 5.9 RBC 4.36 Hgb 13.3 Hct 40.5 MCV 92.9 MCH 30.5 MCHC 32.9 RDW 13.0 Plt Count 170 MPV 10.4 Sodium Potassium Chloride Carbon Dioxide Anion Gap BUN Creatinine Creat Clearance w eGFR POC Glucometer 194 176 Random Glucose Calcium Total Bilirubin AST ALT Alkaline Phosphatase Total Protein Albumin RPR Titer 07/09/18 07/09/18 07/09/18 07:50 07:50 16:26 WBC RBC Hgb Hct MCV MCH MCHC RDW Plt Count MPV Sodium 139 Potassium 3.7 Chloride 101 Carbon Dioxide 27 Anion Gap 11 BUN 9 Creatinine 0.6 Creat Clearance w eGFR > 60 POC Glucometer 178 Random Glucose 154 H Calcium 8.8 Total Bilirubin 1.0 AST 10 L ALT 18 Alkaline Phosphatase 107 Total Protein 6.5 Albumin 3.6 RPR Titer Nonreactive 07/09/18 07/10/18 21:00 07:52 WBC RBC Hgb Hct MCV MCH MCHC RDW Plt Count MPV Sodium Potassium Chloride Carbon Dioxide Anion Gap BUN Creatinine Creat Clearance w eGFR POC Glucometer 142 181 Random Glucose Calcium Total Bilirubin AST ALT Alkaline Phosphatase Total Protein Albumin RPR Titer Vital Signs 07/08/18 07/08/18 07/08/18 16:15 19:14 22:00 Temperature 96 F L 97.3 F L 98.0 F Pulse Rate 77 80 79 Respiratory 20 18 18 Rate Blood Pressure 162/77 132/80 137/82 07/09/18 07/09/18 07/09/18 00:30 03:30 06:23 Temperature 98.3 F Pulse Rate 63 Respiratory 18 18 18 Rate Blood Pressure 132/77 Assessment: WITHDRAWAL SX Plan: CONTINUE DETOX
[2018-07-09] MEDS: diazePAM 5 MG TABLET PO PRN ×3 (11:53→22:25)
[2018-07-09 12:32] LABS: ALBUMIN 3.6 g/dl (3.4-5.0); ALK PHOS 107 U/L (45-117); ANION GAP 11 MMOL/L (8-16); BLOOD UREA NITROGEN 9 mg/dL (7-18); CALCIUM 8.8 mg/dL (8.5-10.1); CHLORIDE 101 mmol/L (98-107); CO2 27 mmol/L (21-32); CREATININE 0.6 mg/dL (0.55-1.3); GLUCOSE,RANDOM 154 mg/dL (74-106); POTASSIUM 3.7 mmol/L (3.5-5.1); SGOT/AST 10 U/L (15-37); SGPT/ALT 18 U/L (13-61); SODIUM 139 mmol/L (136-145); TOT PROT 6.5 g/dl (6.4-8.2)
[2018-07-09] MEDS: QUEtiapine FUMARATE 50 MG TABLET PO SCH (22:22)
[2018-07-09] MEDS: busPIRone HCL 10 MG TABLET (FP) PO SCH (22:22)
[2018-07-09] MEDS: ATORVASTATIN CA 20 MG TABLET (FP) PO SCH (22:22)
[2018-07-09] MEDS: THIAMINE HCL 100 MG TABLET (FP) PO SCH (22:22)
[2018-07-10] MEDS: diazePAM 5 MG TABLET PO PRN ×4 (02:48→22:53)
[2018-07-10] MEDS: IBUPROFEN 400 MG TABLET (FP) PO PRN ×2 (02:49→18:02)
[2018-07-10] MEDS: metFORMIN HCL 500 MG TABLET (FP) PO SCH ×2 (07:55→18:00)
[2018-07-10] MEDS: INSULIN SLIDING SCALE (NOVOLOG) 1 VIAL SQ SCH ×4 (07:56→22:47)
[2018-07-10] MEDS: busPIRone HCL 10 MG TABLET (FP) PO SCH ×3 (07:56→22:46)
[2018-07-10] MEDS ORDERED: METHADONE HCL 5 MG TABLET (FOR DETOX USE ONLY) PO ONE (10:00)
[2018-07-10] MEDS: PANTOPRAZOLE 40 MG TABLET (FP) PO SCH (10:19)
[2018-07-10] MEDS: PRENATAL VITAMINS W/ FOLIC ACID TABLET (FP) PO SCH (10:19)
[2018-07-10] MEDS: FLUoxetine HCL 20 MG CAPSULE (FP) PO SCH (10:19)
[2018-07-10] MEDS: amLODIPine BESYLATE 10 MG TABLET (FP) PO SCH (10:19)
[2018-07-10] MEDS: NICOTINE 7 MG/24 HOURS TOPICAL PATCH TD SCH (10:20)
[2018-07-10] MEDS ORDERED: TRIMETHOBENZAMIDE HCL 200MG/2ML INJ IM PRN (13:08)
[2018-07-10] MEDS: MAG HYDROX/AL HYDROX/SIMETH 30 ML UNIT-DOSE CUP PO PRN ×2 (16:59→22:53)
--- NOTE | 2018-07-10 17:53 | PN ---
S COWS - Scale Resting Pulse: 0= DC 80 or Below Sweatin= Chills/Flushing Restless Observation: 3= Extraneous Movement Pupil Size: 0= Normal to Room Light Bone or Joint Aches: 2= Severe Diffuse Aches Runny Nose/ Eye Tearin= Runny Nose/Eyes GI Upset > 30mins: 1= Stomach Cramp Tremor Observation of Outstretched Hands: 2= Slight Tremor Visible Yawning Observation: 0= None Anxiety or Irritability: 2=Irritable/Anxious Goose Flesh Skin: 0=Smooth Skin COWS Score: 13 BHS Progress Note (SOAP) Subjective: Stomach ache, tremor, chills, sweating, interrupted sleep, restless legs, vomiting Objective: 07/10/18 17:51 Last Vital Signs Temp Pulse Resp BP Pulse Ox 98.9 F 54 L 20 145/71 07/10/18 14:54 07/10/18 14:54 07/10/18 14:54 07/10/18 14:54 Laboratory Tests 07/08/18 07/09/18 07/09/18 21:47 06:14 07:50 WBC 5.9 RBC 4.36 Hgb 13.3 Hct 40.5 MCV 92.9 MCH 30.5 MCHC 32.9 RDW 13.0 Plt Count 170 MPV 10.4 Sodium Potassium Chloride Carbon Dioxide Anion Gap BUN Creatinine Creat Clearance w eGFR POC Glucometer 194 176 Random Glucose Calcium Total Bilirubin AST ALT Alkaline Phosphatase Total Protein Albumin RPR Titer 07/09/18 07/09/18 07/09/18 07:50 07:50 16:26 WBC RBC Hgb Hct MCV MCH MCHC RDW Plt Count MPV Sodium 139 Potassium 3.7 Chloride 101 Carbon Dioxide 27 Anion Gap 11 BUN 9 Creatinine 0.6 Creat Clearance w eGFR > 60 POC Glucometer 178 Random Glucose 154 H Calcium 8.8 Total Bilirubin 1.0 AST 10 L ALT 18 Alkaline Phosphatase 107 Total Protein 6.5 Albumin 3.6 RPR Titer Nonreactive 07/09/18 07/10/18 07/10/18 21:00 07:52 16:25 WBC RBC Hgb Hct MCV MCH MCHC RDW Plt Count MPV Sodium Potassium Chloride Carbon Dioxide Anion Gap BUN Creatinine Creat Clearance w eGFR POC Glucometer 142 181 169 Random Glucose Calcium Total Bilirubin AST ALT Alkaline Phosphatase Total Protein Albumin RPR Titer Labs reviewed: hyperglycemia noted Assessment: 07/10/18 17:51 Withdrawal symptoms Noted with hyperglycemia Plan: Continue detox Encouraged PO water hydration Hyperglycemia: secondary to DMT2, continue diabetic regimen
[2018-07-10] MEDS: CYCLOBENZAPRINE HCL 10 MG TABLET (FP) PO PRN (18:04)
[2018-07-10] MEDS: THIAMINE HCL 100 MG TABLET (FP) PO SCH (22:46)
[2018-07-10] MEDS: QUEtiapine FUMARATE 50 MG TABLET PO SCH (22:46)
[2018-07-10] MEDS: ATORVASTATIN CA 20 MG TABLET (FP) PO SCH (22:46)
[2018-07-11] MEDS: metFORMIN HCL 500 MG TABLET (FP) PO SCH ×2 (06:08→17:21)
[2018-07-11] MEDS: busPIRone HCL 10 MG TABLET (FP) PO SCH ×3 (06:08→22:31)
[2018-07-11] MEDS: CYCLOBENZAPRINE HCL 10 MG TABLET (FP) PO PRN ×2 (06:08→17:21)
[2018-07-11] MEDS: diazePAM 5 MG TABLET PO PRN ×2 (06:17→10:37)
[2018-07-11] MEDS: INSULIN SLIDING SCALE (NOVOLOG) 1 VIAL SQ SCH ×4 (07:02→22:32)
[2018-07-11] MEDS ORDERED: METHADONE HCL 10 MG TABLET (FOR DETOX USE ONLY) PO ONE (10:00)
[2018-07-11] MEDS: NICOTINE 7 MG/24 HOURS TOPICAL PATCH TD SCH (10:34)
[2018-07-11] MEDS: PRENATAL VITAMINS W/ FOLIC ACID TABLET (FP) PO SCH (10:34)
[2018-07-11] MEDS: amLODIPine BESYLATE 10 MG TABLET (FP) PO SCH (10:34)
[2018-07-11] MEDS: FLUoxetine HCL 20 MG CAPSULE (FP) PO SCH (10:34)
[2018-07-11] MEDS: PANTOPRAZOLE 40 MG TABLET (FP) PO SCH (10:35)
--- NOTE | 2018-07-11 13:50 | PN ---
BHS Progress Note (SOAP) Subjective: feeling better no body aches no tremor Objective: 07/11/18 13:45 Vital Signs Temperature 98.7 F 07/11/18 13:18 Pulse Rate 64 07/11/18 13:18 Respiratory Rate 18 07/11/18 13:18 Blood Pressure 152/91 07/11/18 13:18 O2 Sat by Pulse Oximetry (%) Laboratory Last Values WBC 5.9 K/mm3 (4.0-10.0) 07/09/18 07:50 RBC 4.36 M/mm3 (3.60-5.2) 07/09/18 07:50 Hgb 13.3 GM/dL (10.7-15.3) 07/09/18 07:50 Hct 40.5 % (32.4-45.2) 07/09/18 07:50 MCV 92.9 fl (80-96) 07/09/18 07:50 MCH 30.5 pg (25.7-33.7) 07/09/18 07:50 MCHC 32.9 g/dl (32.0-36.0) 07/09/18 07:50 RDW 13.0 % (11.6-15.6) 07/09/18 07:50 Plt Count 170 K/MM3 (134-434) 07/09/18 07:50 MPV 10.4 fl (7.5-11.1) 07/09/18 07:50 Sodium 139 mmol/L (136-145) 07/09/18 07:50 Potassium 3.7 mmol/L (3.5-5.1) 07/09/18 07:50 Chloride 101 mmol/L (98-107) 07/09/18 07:50 Carbon Dioxide 27 mmol/L (21-32) 07/09/18 07:50 Anion Gap 11 MMOL/L (8-16) 07/09/18 07:50 BUN 9 mg/dL (7-18) 07/09/18 07:50 Creatinine 0.6 mg/dL (0.55-1.3) 07/09/18 07:50 Creat Clearance w eGFR > 60 (>60) 07/09/18 07:50 POC Glucometer 202 UNITS (80-120) 07/11/18 11:28 Random Glucose 154 mg/dL (74-106) H 07/09/18 07:50 Calcium 8.8 mg/dL (8.5-10.1) 07/09/18 07:50 Total Bilirubin 1.0 mg/dL (0.2-1) 07/09/18 07:50 AST 10 U/L (15-37) L 07/09/18 07:50 ALT 18 U/L (13-61) 07/09/18 07:50 Alkaline Phosphatase 107 U/L (45-117) 07/09/18 07:50 Total Protein 6.5 g/dl (6.4-8.2) 07/09/18 07:50 Albumin 3.6 g/dl (3.4-5.0) 07/09/18 07:50 RPR Titer Nonreactive (NONREACTIVE) 07/09/18 07:50 lab noted begin lisinopril 07/11/18 13:49 Assessment: 07/11/18 13:49 mild withdrawal sx hypertension Plan: medically supervised detox
[2018-07-11] MEDS ORDERED: LISINOPRIL 5 MG TABLET (FP) PO SCH (14:00)
[2018-07-11] MEDS: IBUPROFEN 400 MG TABLET (FP) PO PRN (17:21)
[2018-07-11] MEDS: THIAMINE HCL 100 MG TABLET (FP) PO SCH (22:30)
[2018-07-11] MEDS: cloNIDine HCL 0.1 MG TABLET PO PRN (22:30)
[2018-07-11] MEDS: ATORVASTATIN CA 20 MG TABLET (FP) PO SCH (22:31)
[2018-07-11] MEDS: QUEtiapine FUMARATE 50 MG TABLET PO SCH (22:31)
[2018-07-12] MEDS: busPIRone HCL 10 MG TABLET (FP) PO SCH (05:26)
[2018-07-12] MEDS: CYCLOBENZAPRINE HCL 10 MG TABLET (FP) PO PRN (05:29)
[2018-07-12] MEDS ORDERED: METHADONE HCL 5 MG TABLET (FOR DETOX USE ONLY) PO ONE (06:00)
[2018-07-12] MEDS: metFORMIN HCL 500 MG TABLET (FP) PO SCH (06:17)
[2018-07-12] MEDS: INSULIN SLIDING SCALE (NOVOLOG) 1 VIAL SQ SCH (06:17)
[2018-07-12 06:28] VITALS: BP 122/68; PULSE 84; TEMP 97.9
--- NOTE | 2018-07-12 09:29 | DS ---
[facility] Detox Discharge Summary Admission Date: 07/08/18 Discharge Date: 07/12/18 - History Present History: Opioid Dependence Additional Comments: 53 years old female admitted on 07/08/18 for opiate withdrawal stabilization completed opiate detox regimen tolerated well alert no acute distress aftercare continues following up with endocrainologist or [facility] [employer] line back feeder or primary care provider for medical mental and addiction issues - Physical Exam Results Vital Signs: Vital Signs Temperature 97.9 F 07/12/18 06:28 Pulse Rate 84 07/12/18 06:28 Respiratory Rate 18 07/12/18 06:28 Blood Pressure 122/68 07/12/18 06:28 O2 Sat by Pulse Oximetry (%) Pertinent Admission Physical Exam Findings: opiate withdrawal sx Vital Signs Temperature 97.9 F 07/12/18 06:28 Pulse Rate 84 07/12/18 06:28 Respiratory Rate 18 07/12/18 06:28 Blood Pressure 122/68 07/12/18 06:28 O2 Sat by Pulse Oximetry (%) Laboratory Last Values WBC 5.9 K/mm3 (4.0-10.0) 07/09/18 07:50 RBC 4.36 M/mm3 (3.60-5.2) 07/09/18 07:50 Hgb 13.3 GM/dL (10.7-15.3) 07/09/18 07:50 Hct 40.5 % (32.4-45.2) 07/09/18 07:50 MCV 92.9 fl (80-96) 07/09/18 07:50 MCH 30.5 pg (25.7-33.7) 07/09/18 07:50 MCHC 32.9 g/dl (32.0-36.0) 07/09/18 07:50 RDW 13.0 % (11.6-15.6) 07/09/18 07:50 Plt Count 170 K/MM3 (134-434) 07/09/18 07:50 MPV 10.4 fl (7.5-11.1) 07/09/18 07:50 Sodium 139 mmol/L (136-145) 07/09/18 07:50 Potassium 3.7 mmol/L (3.5-5.1) 07/09/18 07:50 Chloride 101 mmol/L (98-107) 07/09/18 07:50 Carbon Dioxide 27 mmol/L (21-32) 07/09/18 07:50 Anion Gap 11 MMOL/L (8-16) 07/09/18 07:50 BUN 9 mg/dL (7-18) 07/09/18 07:50 Creatinine 0.6 mg/dL (0.55-1.3) 07/09/18 07:50 Creat Clearance w eGFR > 60 (>60) 07/09/18 07:50 POC Glucometer 155 UNITS (80-120) 07/12/18 05:26 Random Glucose 154 mg/dL (74-106) H 07/09/18 07:50 Calcium 8.8 mg/dL (8.5-10.1) 07/09/18 07:50 Total Bilirubin 1.0 mg/dL (0.2-1) 07/09/18 07:50 AST 10 U/L (15-37) L 07/09/18 07:50 ALT 18 U/L (13-61) 07/09/18 07:50 Alkaline Phosphatase 107 U/L (45-117) 07/09/18 07:50 Total Protein 6.5 g/dl (6.4-8.2) 07/09/18 07:50 Albumin 3.6 g/dl (3.4-5.0) 07/09/18 07:50 RPR Titer Nonreactive (NONREACTIVE) 07/09/18 07:50 lab noted - Treatment Hospital Course: Detox Protocol Followed, Detoxed Safely, Responded well, Discharged Condition Good, Rehab Referral Accepted Patient has Accepted a Rehab Referral to: as per counselor arrangement - Medication Discharge Medications: Ambulatory Orders Amlodipine Besylate 10 mg PO DAILY 05/10/18 Clonidine HCl 0.1 mg PO BID 05/10/18 Metformin HCl [Glucophage] 1,000 mg PO BID 05/10/18 Pantoprazole Sodium [Protonix -] 40 mg PO DAILY 05/10/18 Fluoxetine HCl [Prozac] 40 mg PO DAILY #30 capsule 05/11/18 Mirtazapine [Remeron -] 30 mg PO HS #30 tablet 05/11/18 Atorvastatin Ca [Lipitor] 20 mg PO HS #30 tablet 07/11/18 - Diagnosis (1) Sedative, hypnotic or anxiolytic dependence with withdrawal, uncomplicated Status: Acute (2) Asthma Status: Chronic Qualifiers: Asthma severity: mild Asthma persistence: unspecified Asthma complication type: uncomplicated Qualified Code(s): J45.909 - Unspecified asthma, uncomplicated (3) Hyperlipidemia Status: Chronic Qualifiers: Hyperlipidemia type: pure hypercholesterolemia Qualified Code(s): E78.00 - Pure hypercholesterolemia, unspecified; E78.0 - Pure hypercholesterolemia (4) Hypertension Status: Chronic Qualifiers: Hypertension type: essential hypertension Qualified Code(s): I10 - Essential (primary) hypertension (5) Nicotine dependence Status: Acute Qualifiers: Nicotine product type: cigarettes Substance use status: in withdrawal Qualified Code(s): F17.213 - Nicotine dependence, cigarettes, with withdrawal (6) Substance induced mood disorder Status: Suspected (7) Type 2 diabetes mellitus with hyperglycemia Status: Chronic Qualifiers: Diabetes mellitus penitentiary insulin use: without intermediate project manager use Qualified Code(s): E11.65 - Type 2 diabetes mellitus with hyperglycemia - AMA Did Patient Leave Against Medical Advice: No
== END 2018-07-12 09:05 | disposition home or self-care (01) | DRG 897 ==
LOC: YASAS 13:30 → Y3N 18:12
PROC: HZ2ZZZZ Detoxification Services for Substance Abuse Treatment (ICD-10-PCS; principal; 2018-07-08)
DX: F11.23 Opioid dependence with withdrawal (principal); F33.9 Major depressive disorder, recurrent, unspecified; Z68.42 Body mass index [BMI] 45.0-49.9, adult; F13.230 Sedative, hypnotic or anxiolytic dependence with withdrawal, uncomplicated; F17.213 Nicotine dependence, cigarettes, with withdrawal; F19.24 Other psychoactive substance dependence with psychoactive substance-induced mood disorder; F41.9 Anxiety disorder, unspecified; G47.00 Insomnia, unspecified; I10 Essential (primary) hypertension; E11.65 Type 2 diabetes mellitus with hyperglycemia; Z79.84 Long term (current) use of oral hypoglycemic drugs; E78.00 Pure hypercholesterolemia, unspecified; J45.909 Unspecified asthma, uncomplicated; E66.01 Morbid (severe) obesity due to excess calories; Z86.73 Personal history of transient ischemic attack (TIA), and cerebral infarction without residual deficits; Z86.2 Personal history of diseases of the blood and blood-forming organs and certain disorders involving the immune mechanism
CPT/HCPCS: 36415; 80053; 82962; 85027; 86593; J0735